=== PATIENT | male | born 1980 | race Caucasian/White ===

== ENCOUNTER 2018-11-05 16:26 | Emergency (ER) | payer BC, OTHER ==
[~2018-11-05] VITALS: Ht 182.9 cm; Wt 117.9 kg
--- OUTSIDE RECORDS SUMMARY | 2018-11-05 16:32 | XMS REPORT | Continuity of Care Document ---
Author Organization Unknown Address Unknown Phone Unavailable Allergies There is no data. Medications There is no data. Problems There is no data. Procedures There is no data. Results There is no data. Encounters ACCT No. Visit Date/Time Discharge Status Pt. Type Provider Facility Loc./Unit Complaint [id number] 09/12/2018 17:15:00 09/12/2018 23:59:59 [facility] Outpatient CADEN BRADY [facility]
--- NOTE | 2018-11-05 18:04 | ED Respiratory ---
General Chief Complaint: Respiratory Problems Stated Complaint: SOB, LT LEG PAIN Nursing Triage Note: Patient states he started having leg pain this morning on posterior left thigh that is worse with walking. About an hour ago started having mild shortness of breath. States he feels like he has been "working hard" for air. Shortness of breath is not changed by activity. States he was in a car for 5 hours yesterday. No hx of blood clots. Had similar symptoms 5 years ago along with arm numbness and tingling and was told he had "age spots" on his brain. History of Present Illness Date Seen by Provider: Nov 05, 2018 Time Seen by Provider: 17:59 Initial Comments above is accurate pt states his only known PMHx is HTN noted burnng pain in left hamstring area this AM no known precipitant then maybe mild sob vague R chest/neck pain few days ago sx's mild and vague pt in no distress Allergies and Home Medications Patient Home Medication List Home Medication List Reviewed: Yes Review of Systems Review of Systems Constitutional: no symptoms reported EENTM: no symptoms reported Respiratory: short of breath Cardiovascular: chest pain (minimal right chest and neck discomfort recently not now); No syncope Gastrointestinal: No abdominal pain Genitourinary: no symptoms reported Musculoskeletal: other (pain left quadriceps) Past Idzhavp-Qpwsmm-Zszqql Hx Patient Social History Alcohol Use: Denies Use Recreational Drug Use: No Smoking Status: Current Everyday Smoker Type Used: Cigarettes 2nd Hand Smoke Exposure: Yes Recent Foreign Travel: No Contact w/Someone Who Travel: No Recent Infectious Disease Expo: No Recent Hopitalizations: No Physical Abuse: No Sexual Abuse: No Mistreated: No Fear: No Seasonal Allergies Seasonal Allergies: No Past Medical History Surgeries: Yes (hernia) Respiratory: No Cardiac: Yes Hypertension Neurological: No Genitourinary: No Gastrointestinal: No Musculoskeletal: Yes Arthritis Endocrine: No HEENT: No Cancer: No Psychosocial: No Integumentary: No Physical Exam Vital Signs - First Documented 11/05/18 16:48 Temp 99.6 Pulse 107 Resp 18 B/P (MAP) 128/80 (96) Pulse Ox 98 Capillary Refill : Less Than 3 Seconds Height: 6'0" Weight: 260lbs. oz. 117.993716vg; BMI Method:Stated General Appearance: no apparent distress Eyes: Bilateral Eye PERRL, Bilateral Eye EOMI HEENT: normal ENT inspection Neck: non-tender, supple Respiratory: chest non-tender, lungs clear, normal breath sounds Cardiovascular: regular rate, rhythm Gastrointestinal: normal bowel sounds Extremities: normal range of motion, non-tender, normal inspection, other (no + findings on exam) Progress/Results/Core Measures Suspected Sepsis Recent Fever Within 48 Hours: No Infection Criteria Present: None New/Unexplained Altered Menta: No Sepsis Screen: No Definite Risk SIRS Temperature:99.6 Pulse: 107 Respiratory Rate: 18 Blood Pressure 128 /80 Mean: 96 Results/Orders Lab Results Laboratory Tests Test 11/05/18 17:41 Range/Units D-Dimer 0.24 0.00-0.49 UG/ML Troponin I < 0.30 <0.30 NG/ML My Orders Orders - HERMILO KING MD Troponin I (11/05/18 17:26) Fibrin Degradation Products (11/05/18 17:26) Vital Signs/I&O 11/05/18 16:48 Temp 99.6 Pulse 107 Resp 18 B/P (MAP) 128/80 (96) Pulse Ox 98 Capillary Refill : Less Than 3 Seconds Blood Pressure Mean: 96 ECG Initial ECG Impression Date: Nov 05, 2018 Initial ECG Impression Time: 18:06 Initial ECG Rate: 95 Initial ECG Intervals: Normal Initial ECG Impression: Normal Departure Impression Primary Impression: Hamstring muscle strain Qualified Codes: S76.312A - Strain of muscle, fascia and tendon of the posterior muscle group at thigh level, left thigh, initial encounter Disposition: 01 HOME, SELF-CARE Condition: Stable Departure-Patient Inst. Decision time for Depature: 18:23 Patient Instructions: Hamstring Muscle Strain (DC) HERMILO KING MD Nov 05, 2018 18:04
[2018-11-05 18:35] VITALS: BP 136/98
== END 2018-11-05 18:32 | disposition home or self-care (01) ==
LOC: ER FS 16:28
DX: S76.312A Strain of muscle, fascia and tendon of the posterior muscle group at thigh level, left thigh, initial encounter (principal); I10 Essential (primary) hypertension; F17.210 Nicotine dependence, cigarettes, uncomplicated; X58.XXXA Exposure to other specified factors, initial encounter
CPT/HCPCS: 36415; 84484; 85379; 93005

== ENCOUNTER 2020-06-19 20:57 | Emergency (ER) | payer SELFPAY ==
[~2020-06-19] VITALS: Ht 182.8 cm; Wt 126.9 kg
--- NOTE | 2020-06-19 22:03 | ED Abdominal Pain ---
General Chief Complaint: Abdominal/GI Problems Stated Complaint: COUGH,RT SIDE ABD PAIN History of Present Illness Date Seen by Provider: Jun 19, 2020 Time Seen by Provider: 21:55 Initial Comments Patient is a 39-year-old male who presents to the emergency department with a chief complaint of right flank pain/right upper quadrant abdominal pain onset 2 days ago. Patient states he is taken 800 mg ibuprofen and a muscle relaxer without any relief of symptoms. He states that it hurts to take a deep breath and to cough. Patient states he has had some upper respiratory congestion over the last couple of days. He states his cough is nonproductive. He just took a daughter to urgent care within the last few days and she was diagnosed with upper respiratory tract infection. He denies any nausea or vomiting. No diarrhea. No problems urinating. The pain does not radiate down into his groin. He denies any rashes. He describes the pain as burning and sharp. All other review of systems reviewed and negative except as stated above. Timing/Duration: 1-2 Days Severity/Quality: Moderate, Burning, Cramping, Sharp Location: RUQ Radiation: RUQ Modifying Factors: Worsens With Coughing, Worsens With Movement Associated Symptoms: Shortness of Air Allergies and Home Medications Allergies Coded Allergies: No Known Drug Allergies (Unverified , 11/05/18) Patient Home Medication List Home Medication List Reviewed: Yes Review of Systems Review of Systems Constitutional: see HPI EENTM: No Symptoms Reported Respiratory: Cough Cardiovascular: No Symptoms Reported Gastrointestinal: Abdominal Pain; Denies Diarrhea, Denies Nausea, Denies Poor Appetite Genitourinary: No Symptoms Reported; Denies Burning, Denies Hematuria Musculoskeletal: back pain Skin: no symptoms reported (Right flank); No pruritus, No rash All Other Systems Reviewed Negative Unless Noted: Yes Past Woepika-Wmzjjo-Oqmyyc Hx Patient Social History Type Used: Cigarettes 2nd Hand Smoke Exposure: Yes Recent Hopitalizations: No Seasonal Allergies Seasonal Allergies: No Past Medical History Surgeries: Yes (hernia) Respiratory: No Cardiac: Yes Hypertension Neurological: No Genitourinary: No Gastrointestinal: No Musculoskeletal: Yes Arthritis Endocrine: No HEENT: No Cancer: No Psychosocial: No Integumentary: No Physical Exam Vital Signs Vital Signs - First Documented 06/19/20 21:27 Temp 37.4 Pulse 108 Resp 20 B/P (MAP) 146/90 (108) Pulse Ox 98 O2 Delivery Room Air Capillary Refill : Height/Weight/BMI Height: 6'0" Weight: 260lbs. oz. 117.774701px; BMI Method:Stated General Appearance: WD/WN, no apparent distress HEENT: PERRL/EOMI Neck: full range of motion Respiratory: lungs clear, normal breath sounds, no respiratory distress, no accessory muscle use Cardiovascular: regular rate, rhythm Gastrointestinal: normal bowel sounds, soft, tenderness (RUQ) Extremities: non-tender, normal inspection, no pedal edema Back: normal inspection Neurologic/Psychiatric: alert, normal mood/affect, oriented x 3 Skin: normal color, warm/dry Progress/Results/Core Measures Results/Orders Lab Results Laboratory Tests Test 06/19/20 21:36 06/19/20 21:42 Range/Units Urine Color YELLOW Urine Clarity CLEAR Urine pH 6.0 5-9 Urine Specific [place] 1.025 H 1.016-1.022 Urine Protein NEGATIVE NEGATIVE Urine Glucose (UA) NEGATIVE NEGATIVE Urine Ketones NEGATIVE NEGATIVE Urine Nitrite NEGATIVE NEGATIVE Urine Bilirubin NEGATIVE NEGATIVE Urine Urobilinogen 0.2 < = 1.0 MG/DL Urine Leukocyte Esterase NEGATIVE NEGATIVE Urine RBC (Auto) TRACE H NEGATIVE Urine RBC 0-2 /HPF Urine WBC NONE /HPF Urine Squamous Epithelial Cells NONE /HPF Urine Crystals NONE /LPF Urine Bacteria NEGATIVE /HPF Urine Casts NONE /LPF Urine Mucus NEGATIVE /LPF Urine Culture Indicated NO White Blood Count 10.2 4.3-11.0 10^3/uL Red Blood Count 4.77 4.35-5.85 10^6/uL Hemoglobin 14.4 13.3-17.7 G/DL Hematocrit 42 40-54 % Mean Corpuscular Volume 87 80-99 FL Mean Corpuscular Hemoglobin 30 25-34 PG Mean Corpuscular Hemoglobin Concent 35 32-36 G/DL Red Cell Distribution Width 12.3 10.0-14.5 % Platelet Count 256 130-400 10^3/uL Mean Platelet Volume 11.1 H 7.4-10.4 FL Immature Granulocyte % (Auto) 0 % Neutrophils (%) (Auto) 73 42-75 % Lymphocytes (%) (Auto) 16 12-44 % Monocytes (%) (Auto) 7 0-12 % Eosinophils (%) (Auto) 4 0-10 % Basophils (%) (Auto) 0 0-10 % Neutrophils # (Auto) 7.5 1.8-7.8 X 10^3 Lymphocytes # (Auto) 1.7 1.0-4.0 X 10^3 Monocytes # (Auto) 0.7 0.0-1.0 X 10^3 Eosinophils # (Auto) 0.4 H 0.0-0.3 10^3/uL Basophils # (Auto) 0.0 0.0-0.1 10^3/uL Immature Granulocyte # (Auto) 0.0 0.0-0.1 10^3/uL Erythrocyte Sedimentation Rate 7 0-15 MM/HR Sodium Level 135 135-145 MMOL/L Potassium Level 4.2 3.6-5.0 MMOL/L Chloride Level 100 98-107 MMOL/L Carbon Dioxide Level 24 21-32 MMOL/L Anion Gap 11 5-14 MMOL/L Blood Urea Nitrogen 17 7-18 MG/DL Creatinine 0.93 0.60-1.30 MG/DL Estimat Glomerular Filtration Rate > 60 BUN/Creatinine Ratio 18 Glucose Level 126 H 70-105 MG/DL Calcium Level 9.7 8.5-10.1 MG/DL Corrected Calcium 9.3 8.5-10.1 MG/DL Total Bilirubin 0.2 0.1-1.0 MG/DL Aspartate Amino Transf (AST/SGOT) 19 5-34 U/L Alanine Aminotransferase (ALT/SGPT) 14 0-55 U/L Alkaline Phosphatase 97 40-136 U/L Total Protein 7.2 6.4-8.2 GM/DL Albumin 4.5 3.2-4.5 GM/DL My Orders Orders - LEYLA GALINDO MD Cbc With Automated Diff (06/19/20 22:03) Comprehensive Metabolic Panel (06/19/20 22:03) Ua Culture If Indicated (06/19/20 22:03) Chest 1 View Ap/Pa Only (06/19/20 22:03) Ketorolac Injection (Toradol Injection) (06/19/20 22:15) Ed Iv/Invasive Line Start (06/19/20 22:31) Ct Abdomen/Pelvis Wo (06/19/20 22:45) Orphenadrine Inj (Ed Only) (Norflex Inje (06/19/20 23:30) Erythrocyte Sedimentation Rate (06/19/20 23:30) Benzonatate Capsule (Tessalon Perles) (06/19/20 23:45) Rx-Hydrocodone/Apap 5-325 Mg (Rx-Vicodin (06/20/20 00:15) Medications Given in ED Vital Signs/I&O 06/19/20 06/20/20 21:27 00:33 Temp 37.4 Pulse 108 94 Resp 20 16 B/P (MAP) 146/90 (108) 119/79 Pulse Ox 98 99 O2 Delivery Room Air Room Air Progress Progress Note : Time: : Progress Note Patient reevaluated, pain medications did not really helped to any degree of significance. Patient CT shows appendix not definitively identified, there is some soft tissue opacity likely inflammatory stranding in the right lower quadrant of the right inguinal ligament of uncertain significance. May be contiguous with a portion of the distal ileum and could represent a diverticulum of the distal ileum. Also the CT shows high index of suspicion for discitis a repeat exam with delayed oral contrast administration will be helpful. The patient has no midline back pain. He states he has more right flank pain at the level of approximately T8-T10. Labs have been reviewed and are completely within normal limits. The patient has no fever, elevated white blood cell count or other concerning findings. Patient will be treated with some pain medications and advised to follow-up and recheck within 24 hours. He is given Norflex 60 mg at this time for further pain. 0019 After Norflex the patient still has some discomfort. Recommended hydrocodone take-home pack. Advised him to follow-up with his primary care physician in the morning. He verbalizes understanding. All questions were sought and answered. Patient is stable for discharge. Diagnostic Imaging Diagonstic Imaging: Xray, CT Plain Films/CT/US/NM/MRI: chest, abdomen Comments [facility]. [place], [place] NAME: DHAVAL PEDRAZA Aleksandr [facility] REC#: [id number] PT STATUS: DEP ER : 1980 PHYSICIAN: LEYLA GALINDO MD ADMIT DATE: 06/19/20/ER FS Signed Date of Exam:06/19/20 CT ABDOMEN/PELVIS WO PROCEDURE: CT abdomen and pelvis without contrast. TECHNIQUE: Multiple contiguous axial images were obtained through the abdomen and pelvis without the use of intravenous contrast. Auto Exposure Controls were utilized during the CT exam to meet ALARA standards for radiation dose reduction. DATE: June 19, 2020. COMPARISON: None. INDICATION: 39-year-old male, right upper quadrant abdominal pain. FINDINGS: There are limitations for evaluation of the abdominal organs, neoplastic processes, abscess, and limited evaluation of the vasculature relating to the lack of intravenous contrast. The visualized portions of the lung bases are clear. The heart is not enlarged. There is no pericardial effusion. The liver is unremarkable in size and contour. The gallbladder is contracted. There is no biliary ductal dilation. The main pancreatic duct is not abnormally dilated. Limited noncontrast evaluation of the pancreatic parenchyma is unremarkable. The spleen is not enlarged. There is a small accessory splenule. The adrenal glands are unremarkable. Unremarkable appearance of the renal parenchyma on limited noncontrast assessment. The urinary collecting systems are not distended. There is no identified renal or ureteral stone. The urinary bladder is unremarkable. The intestinal tract is not distended. There is no evidence of acute appendicitis. There is no free intraperitoneal air. There is no drainable fluid collection. There is no free pelvic fluid. There are mild atherosclerotic calcifications. There is no identified abnormally enlarged lymph node in the abdomen or pelvis meeting CT size criteria for adenopathy. There are bilateral L5 pars interarticularis defects. IMPRESSION: CT ABDOMEN AND PELVIS. 1. No identified acute abnormality in the abdomen or pelvis. 2. Mild atherosclerotic calcifications are noted. 3. Bilateral L5 pars interarticularis defects. Dictated by: Dictated on workstation # [id number] Dict: 06/20/20 0812 Trans: 06/20/20 09 [facility] [id number] Interpreted by: LOREN MONTES MD Electronically signed by: LOREN MONTES MD 06/20/2004 [facility], [place] NAME: DHAVAL PEDRAZA Aleksandr [facility] REC#: [id number] PT STATUS: DEP ER : 1980 PHYSICIAN: LEYLA GALINDO MD ADMIT DATE: 06/19/20/ER FS Signed Date of Exam:06/19/20 CHEST 1 VIEW AP/PA ONLY EXAMINATION: Chest radiograph, portable AP view. DATE: 06/19/2020 10:23 PM INDICATION: 39-year-old male, cough. COMPARISON: None. FINDINGS: Heart size and mediastinal contours are unremarkable. There is no identified pneumothorax. There is no large pleural effusion. There is no identified focal airspace consolidation. IMPRESSION: No identified acute cardiopulmonary abnormality. Dictated by: Dictated on workstation # [id number] Dict: 06/20/20699 Trans: 06/20/20903 [facility] [id number] Interpreted by: LOREN MONTES MD Electronically signed by: LOREN MONTES MD 06/20/20903 Departure Impression Primary Impression: Right upper quadrant abdominal pain Disposition: HOME, SELF-CARE Condition: Stable Departure-Patient Inst. Decision time for Depature: 00:15 Referrals: CADEN BRADY MD (PCP/Family) Primary Care Physician Patient Instructions: Abdominal Pain, Adult ED Add. Discharge Instructions: Take the pain medications 1 every 6 hours as needed for pain. Please call Dr. Brady's office tomorrow for a follow-up appointment early next week. Come back to the emergency department for worsening pain especially back pain, vomiting, fever or any other emergent concerning symptoms. Copy Copies To 1: CADEN BRADY MD, KATHRYN M MD Jun 19, 2020 22:02
[2020-06-19 22:12] LABS: HEMATOCRIT 42 % (40-54); HEMOGLOBIN 14.4 G/DL (13.3-17.7); MEAN CORPUSCULAR HEMOGLOBIN 30 PG (25-34); MEAN CORPUSCULAR HGB CONC 35 G/DL (32-36); MEAN CORPUSCULAR VOLUME 87 FL (80-99); MEAN PLATELET VOLUME 11.1 FL (7.4-10.4); PLATELET COUNT 256 10^3/uL (130-400); WHITE BLOOD COUNT 10.2 10^3/uL (4.3-11.0)
[2020-06-19 22:13] LABS: BASOPHILS % (AUTO) 0 % (0-10); EOSINOPHILS # (AUTO) 0.4 10^3/uL (0.0-0.3); EOSINOPHILS % (AUTO) 4 % (0-10); LYMPHOCYTES # (AUTO) 1.7 X 10^3 (1.0-4.0); LYMPHOCYTES % (AUTO) 16 % (12-44); MONOCYTES # (AUTO) 0.7 X 10^3 (0.0-1.0); MONOCYTES % (AUTO) 7 % (0-12); NEUTROPHILS # (AUTO) 7.5 X 10^3 (1.8-7.8); NEUTROPHILS % (AUTO) 73 % (42-75)
[2020-06-19] MEDS ORDERED: KETOROLAC 30 MG/ML VIAL IVP ONE (22:15)
[2020-06-19 22:28] LABS: ALANINE AMINOTRANSFERASE 14 U/L (0-55); ALKALINE PHOSPHATASE 97 U/L (40-136); BILIRUBIN,TOTAL 0.2 MG/DL (0.1-1.0); BUN/CREATININE RATIO 18; CALCIUM 9.7 MG/DL (8.5-10.1); CARBON DIOXIDE 24 MMOL/L (21-32); CHLORIDE 100 MMOL/L (98-107); CREATININE SERUM 0.93 MG/DL (0.60-1.30); GFR ESTIMATED > 60; GLUCOSE 126 MG/DL (70-105); POTASSIUM 4.2 MMOL/L (3.6-5.0); SODIUM 135 MMOL/L (135-145); TOTAL PROTEIN 7.2 GM/DL (6.4-8.2)
[2020-06-19 22:29] LABS: ALBUMIN 4.5 GM/DL (3.2-4.5)
[2020-06-19 22:38] LABS: CLARITY,URINE CLEAR; COLOR,URINE YELLOW; GLUCOSE, URINE (UA) NEGATIVE (NEGATIVE); PROTEIN,URINE NEGATIVE (NEGATIVE)
[2020-06-19 22:39] LABS: BACTERIA,URINE NEGATIVE /HPF; BILIRUBIN,URINE NEGATIVE (NEGATIVE); KETONES,URINE NEGATIVE (NEGATIVE); LEUKOCYTE ESTERASE ,URINE NEGATIVE (NEGATIVE); NITRITE,URINE NEGATIVE (NEGATIVE); RBC,URINE 0-2 /HPF
[2020-06-19] MEDS ORDERED: ORPHENADRINE 60 MG/2 ML (NORFLEX) AMP (ED ONLY) IV ONE (23:30)
[2020-06-19] MEDS ORDERED: BENZONATATE 100 MG (TESSALON) CAPSULE PO SCH (23:45)
[2020-06-20] MEDS ORDERED: RX-HYDROCODONE/APAP 5/325 MG #4 TAB PK PO PRN (00:15)
[2020-06-20 00:33] VITALS: BP 119/79
--- NOTE | 2020-06-20 07:15 | Diagnostic Imaging Report ---
EXAMINATION: Chest radiograph, portable AP view. DATE: 06/19/2020 10:23 PM INDICATION: 39-year-old male, cough. COMPARISON: None. FINDINGS: Heart size and mediastinal contours are unremarkable. There is no identified pneumothorax. There is no large pleural effusion. There is no identified focal airspace consolidation. IMPRESSION: No identified acute cardiopulmonary abnormality. Dictated by: Dictated on workstation # [id number]
--- NOTE | 2020-06-20 08:20 | Diagnostic Imaging Report ---
PROCEDURE: CT abdomen and pelvis without contrast. TECHNIQUE: Multiple contiguous axial images were obtained through the abdomen and pelvis without the use of intravenous contrast. Auto Exposure Controls were utilized during the CT exam to meet ALARA standards for radiation dose reduction. DATE: June 19, 2020. COMPARISON: None. INDICATION: 39-year-old male, right upper quadrant abdominal pain. FINDINGS: There are limitations for evaluation of the abdominal organs, neoplastic processes, abscess, and limited evaluation of the vasculature relating to the lack of intravenous contrast. The visualized portions of the lung bases are clear. The heart is not enlarged. There is no pericardial effusion. The liver is unremarkable in size and contour. The gallbladder is contracted. There is no biliary ductal dilation. The main pancreatic duct is not abnormally dilated. Limited noncontrast evaluation of the pancreatic parenchyma is unremarkable. The spleen is not enlarged. There is a small accessory splenule. The adrenal glands are unremarkable. Unremarkable appearance of the renal parenchyma on limited noncontrast assessment. The urinary collecting systems are not distended. There is no identified renal or ureteral stone. The urinary bladder is unremarkable. The intestinal tract is not distended. There is no evidence of acute appendicitis. There is no free intraperitoneal air. There is no drainable fluid collection. There is no free pelvic fluid. There are mild atherosclerotic calcifications. There is no identified abnormally enlarged lymph node in the abdomen or pelvis meeting CT size criteria for adenopathy. There are bilateral L5 pars interarticularis defects. IMPRESSION: CT ABDOMEN AND PELVIS. 1. No identified acute abnormality in the abdomen or pelvis. 2. Mild atherosclerotic calcifications are noted. 3. Bilateral L5 pars interarticularis defects. Dictated by: Dictated on workstation # [id number]
== END 2020-06-20 00:33 | disposition home or self-care (01) ==
LOC: EDUNIT# 20:57 → ER FS 20:59
DX: R10.11 Right upper quadrant pain (principal); I10 Essential (primary) hypertension; Z77.22 Contact with and (suspected) exposure to environmental tobacco smoke (acute) (chronic)
CPT/HCPCS: 36415; 71045; 74176; 80053; 81000; 85025; 85652

== ENCOUNTER → 2020-07-01 | Outpatient (CLI) | payer SELFPAY ==
--- NOTE | 2020-07-01 16:44 | Diagnostic Imaging Report ---
Indication: Shortness of breath. Time of Exam 3:23 PM Correlation is made with prior chest 06/19/2020. The heart size is normal. The pulmonary vascularity is unremarkable. The lungs are clear. No infiltrate, effusion or pneumothorax is detected. Impression: No acute cardiopulmonary process is detected. Dictated by: Dictated on workstation # [id number]
== END ==
LOC: RAD FS 15:12
PROVIDERS: ATTEND Nurse Practitioner Family
DX: R06.02 Shortness of breath (principal)
CPT/HCPCS: 71046

== ENCOUNTER 2020-07-02 03:25 | Emergency (ER) | payer SELFPAY ==
[~2020-07-02] VITALS: Ht 182.9 cm; Wt 120.6 kg
--- NOTE | 2020-07-02 03:44 | ED Chest Pain ---
General Chief Complaint: Chest Wall Stated Complaint: ABD PAIN Source: patient Exam Limitations: no limitations History of Present Illness Date Seen by Provider: Jul 02, 2020 Time Seen by Provider: 03:39 Initial Comments 39-year-old male presents with right flank/back pain that radiates into the right upper abdomen and right chest. Patient reports is been going on and off for "a month" patient was seen here on June 19, 2020 had an extensive evaluation including labs and CT that were negative. Patient had an outpatient chest x-ray that was called in for him yesterday that shows no acute changes. Patient reports that the pain is worse tonight and that he cannot stand it. Patient has tried Tylenol and ibuprofen with no relief. Patient reports he tried Biofreeze with no relief. Patient does not have any rash. Allergies and Home Medications Allergies Coded Allergies: No Known Drug Allergies (Unverified , 11/05/18) Patient Home Medication List Home Medication List Reviewed: Yes Review of Systems Review of Systems Constitutional: No chills, No fever Cardiovascular: See HPI Gastrointestinal: See HPI Genitourinary: Flank Pain Musculoskeletal: see HPI Skin: no symptoms reported Psychiatric/Neurological: No Symptoms Reported Endocrine: No Symptoms Reported Hematologic/Lymphatic: No Symptoms Reported Past [place]-Nbcdap-Bcwsiy Hx Past Med/Social Hx: Reviewed Nursing Past Med/Soc Hx Patient Social History Type Used: Cigarettes 2nd Hand Smoke Exposure: Yes Recent Hopitalizations: No Seasonal Allergies Seasonal Allergies: No Past Medical History Surgeries: Yes (hernia) Respiratory: No Cardiac: Yes Hypertension Neurological: No Genitourinary: No Gastrointestinal: No Musculoskeletal: Yes Arthritis Endocrine: No HEENT: No Cancer: No Psychosocial: No Integumentary: No Physical Exam Vital Signs Vital Signs - First Documented 07/02/20 03:37 Temp 36.8 Pulse 94 Resp 18 B/P (MAP) 161/114 (130) Pulse Ox 97 O2 Delivery Room Air Capillary Refill : Less Than 3 Seconds Height, Weight, BMI Height: 6'0" Weight: 260lbs. oz. 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 Norm as Tested Skin: Normal Color, Warm/Dry; No Rash Progress/Results/Core Measures Results/Orders Lab Results Laboratory Tests Test 07/02/20 03:50 07/02/20 03:55 Range/Units Urine Color YELLOW Urine Clarity CLEAR Urine pH 6.5 5-9 Urine Specific Shields 1.025 H 1.016-1.022 Urine Protein NEGATIVE NEGATIVE Urine Glucose (UA) NEGATIVE NEGATIVE Urine Ketones TRACE H NEGATIVE Urine Nitrite NEGATIVE NEGATIVE Urine Bilirubin NEGATIVE NEGATIVE Urine Urobilinogen 0.2 < = 1.0 MG/DL Urine Leukocyte Esterase NEGATIVE NEGATIVE Urine RBC (Auto) TRACE H NEGATIVE Urine RBC RARE /HPF Urine WBC NONE /HPF Urine Squamous Epithelial Cells NONE /HPF Urine Crystals NONE /LPF Urine Bacteria NEGATIVE /HPF Urine Casts NONE /LPF Urine Mucus NEGATIVE /LPF Urine Culture Indicated NO White Blood Count 7.9 4.3-11.0 10^3/uL Red Blood Count 4.85 4.35-5.85 10^6/uL Hemoglobin 14.6 13.3-17.7 G/DL Hematocrit 43 40-54 % Mean Corpuscular Volume 89 80-99 FL Mean Corpuscular Hemoglobin 30 25-34 PG Mean Corpuscular Hemoglobin Concent 34 32-36 G/DL Red Cell Distribution Width 12.8 10.0-14.5 % Platelet Count 264 130-400 10^3/uL Mean Platelet Volume 10.6 H 7.4-10.4 FL Immature Granulocyte % (Auto) 0 % Neutrophils (%) (Auto) 69 42-75 % Lymphocytes (%) (Auto) 18 12-44 % Monocytes (%) (Auto) 8 0-12 % Eosinophils (%) (Auto) 4 0-10 % Basophils (%) (Auto) 0 0-10 % Neutrophils # (Auto) 5.5 1.8-7.8 X 10^3 Lymphocytes # (Auto) 1.4 1.0-4.0 X 10^3 Monocytes # (Auto) 0.6 0.0-1.0 X 10^3 Eosinophils # (Auto) 0.3 0.0-0.3 10^3/uL Basophils # (Auto) 0.0 0.0-0.1 10^3/uL Immature Granulocyte # (Auto) 0.0 0.0-0.1 10^3/uL Sodium Level 140 135-145 MMOL/L Potassium Level 4.3 3.6-5.0 MMOL/L Chloride Level 103 98-107 MMOL/L Carbon Dioxide Level 27 21-32 MMOL/L Anion Gap 10 5-14 MMOL/L Blood Urea Nitrogen 11 7-18 MG/DL Creatinine 0.93 0.60-1.30 MG/DL Estimat Glomerular Filtration Rate > 60 BUN/Creatinine Ratio 12 Glucose Level 170 H 70-105 MG/DL Calcium Level 9.9 8.5-10.1 MG/DL Corrected Calcium 8.5-10.1 MG/DL Total Bilirubin 0.3 0.1-1.0 MG/DL Aspartate Amino Transf (AST/SGOT) 16 5-34 U/L Alanine Aminotransferase (ALT/SGPT) 13 0-55 U/L Alkaline Phosphatase 93 40-136 U/L C-Reactive Protein 0.86 H <0.50 MG/DL Total Protein 7.3 6.4-8.2 GM/DL Albumin 4.6 H 3.2-4.5 GM/DL Lipase 29 8-78 U/L My Orders Orders - ROSE,BENNETT L DO Cbc With Automated Diff (07/02/20 03:47) Comprehensive Metabolic Panel (07/02/20 03:47) Lipase (07/02/20 03:47) Ua Culture If Indicated (07/02/20 03:47) Crp Fs (07/02/20 03:47) Hydrocodone/Apap 5/325 Tablet (Lortab 5 (07/02/20 04:00) Orphenadrine Inj (Ed Only) (Norflex Inje (07/02/20 04:15) Medications Given in ED Current Medications Medications Dose Ordered Sig/Oleksandr Route Start Time Stop Time Status Last Admin Dose Admin Acetaminophen/ Hydrocodone Bitart 1 ea ONCE ONCE PO 07/02/20 04:00 07/02/20 04:01 DC 07/02/20 04:11 1 EA Orphenadrine Citrate 60 mg ONCE ONCE IM 07/02/20 04:15 07/02/20 04:16 DC 07/02/20 04:11 60 MG Vital Signs/I&O 07/02/20 07/02/20 03:37 05:08 Temp 36.8 36.8 Pulse 94 94 Resp 18 18 B/P (MAP) 161/114 (130) 161/114 (130) Pulse Ox 97 97 O2 Delivery Room Air Progress Progress Note : Progress Note Patient symptoms are exactly the same as when he was seen here on 06/19/2020. There are no acute abnormalities on his labs. Patient with a negative CT exam on 06/19/2020 and a negative chest x-ray yesterday. At this time, there is no indications for repeat CT scan. I recommend he follow-up with his primary care provider today for further outpatient pain management and further outpatient evaluation. Patient's pain improved following the Norflex and the Lortab. He was discharged in stable condition Departure Impression Primary Impression: Right flank pain Disposition: HOME, SELF-CARE Condition: Stable Departure-Patient Inst. Referrals: ATILIO BROUSSARD DO (PCP/Family) Primary Care Physician Patient Instructions: Costochondritis (DC), Flank Pain (DC) Add. Discharge Instructions: follow up with your primary care provider for further evaluation warm moist heat to affected area 4% topical lidocaine with menthol patches. All discharge instructions reviewed with patient and/or family. Voiced understanding. BENNETT ROSE DO Jul 02, 2020 03:44
[2020-07-02] MEDS ORDERED: ORPHENADRINE 60 MG/2 ML (NORFLEX) AMP (ED ONLY) IV STA (03:57)
[2020-07-02] MEDS ORDERED: HYDROcodone/APAP 5 MG/325 MG (LORTAB) TAB PO ONE (04:00)
[2020-07-02 04:15] LABS: HEMATOCRIT 43 % (40-54); HEMOGLOBIN 14.6 G/DL (13.3-17.7); MEAN CORPUSCULAR HEMOGLOBIN 30 PG (25-34); MEAN CORPUSCULAR HGB CONC 34 G/DL (32-36); MEAN CORPUSCULAR VOLUME 89 FL (80-99); WHITE BLOOD COUNT 7.9 10^3/uL (4.3-11.0)
[2020-07-02] MEDS ORDERED: ORPHENADRINE 60 MG/2 ML (NORFLEX) AMP (ED ONLY) IM ONE (04:15)
[2020-07-02 04:18] LABS: BASOPHILS % (AUTO) 0 % (0-10); EOSINOPHILS % (AUTO) 4 % (0-10); LYMPHOCYTES % (AUTO) 18 % (12-44); MEAN PLATELET VOLUME 10.6 FL (7.4-10.4); MONOCYTES % (AUTO) 8 % (0-12); NEUTROPHILS % (AUTO) 69 % (42-75); PLATELET COUNT 264 10^3/uL (130-400)
[2020-07-02 04:19] LABS: EOSINOPHILS # (AUTO) 0.3 10^3/uL (0.0-0.3); LYMPHOCYTES # (AUTO) 1.4 X 10^3 (1.0-4.0); MONOCYTES # (AUTO) 0.6 X 10^3 (0.0-1.0); NEUTROPHILS # (AUTO) 5.5 X 10^3 (1.8-7.8)
[2020-07-02 04:23] LABS: BACTERIA,URINE NEGATIVE /HPF; BILIRUBIN,URINE NEGATIVE (NEGATIVE); CLARITY,URINE CLEAR; COLOR,URINE YELLOW; GLUCOSE, URINE (UA) NEGATIVE (NEGATIVE); KETONES,URINE TRACE (NEGATIVE); LEUKOCYTE ESTERASE ,URINE NEGATIVE (NEGATIVE); NITRITE,URINE NEGATIVE (NEGATIVE); PH,URINE 6.5 (5-9); PROTEIN,URINE NEGATIVE (NEGATIVE); RBC,URINE RARE /HPF
[2020-07-02 04:36] LABS: ALANINE AMINOTRANSFERASE 13 U/L (0-55); ALKALINE PHOSPHATASE 93 U/L (40-136); BILIRUBIN,TOTAL 0.3 MG/DL (0.1-1.0); BUN/CREATININE RATIO 12; CALCIUM 9.9 MG/DL (8.5-10.1); CARBON DIOXIDE 27 MMOL/L (21-32); CHLORIDE 103 MMOL/L (98-107); CREATININE SERUM 0.93 MG/DL (0.60-1.30); GFR ESTIMATED > 60; GLUCOSE 170 MG/DL (70-105); POTASSIUM 4.3 MMOL/L (3.6-5.0); SODIUM 140 MMOL/L (135-145); TOTAL PROTEIN 7.3 GM/DL (6.4-8.2)
[2020-07-02 04:37] LABS: ALBUMIN 4.6 GM/DL (3.2-4.5); LIPASE 29 U/L (8-78)
[2020-07-02 05:08] VITALS: BP 161/114
== END 2020-07-02 05:08 | disposition home or self-care (01) ==
LOC: EDUNIT# 03:25 → ER FS 03:27
DX: R10.11 Right upper quadrant pain (principal); I10 Essential (primary) hypertension; Z77.22 Contact with and (suspected) exposure to environmental tobacco smoke (acute) (chronic)
CPT/HCPCS: 36415; 80053; 81000; 83690; 85025; 86141

== ENCOUNTER 2021-11-16 19:09 | Emergency (ER) | payer SELFPAY ==
[~2021-11-16] VITALS: Ht 182.8 cm; Wt 107.0 kg
--- NOTE | 2021-11-16 19:19 | ED General ---
General Stated Complaint: FEVER,CHILLS,ABD CRAMPS Source of Information: Patient Exam Limitations: No Limitations History of Present Illness Date Seen by Provider: Nov 16, 2021 Time Seen by Provider: 19:10 Initial Comments 40-year-old male with past medical history of hypertension coming in due to 4 days of fever, chills, body aches, nonbloody diarrhea, and now starting to feel short of breath. No one around him sick that he knows of. Has been tolerating p.o. with no nausea or vomiting. Denies any chest pain, severe abdominal pain, rash, headache, vision changes, neck stiffness, or any other concerns. Had COVID 8 months ago, but does not have any vaccines for COVID. Allergies and Home Medications Allergies Coded Allergies: No Known Drug Allergies (Unverified , 11/05/18) Patient Home Medication List Home Medication List Reviewed: Yes No Active Prescriptions or Reported Meds Review of Systems Review of Systems Constitutional: fever EENTM: No blurred vision Respiratory: No cough Cardiovascular: No chest pain Gastrointestinal: diarrhea Genitourinary: no symptoms reported Musculoskeletal: see HPI Skin: no symptoms reported Psychiatric/Neurological: No Symptoms Reported Hematologic/Lymphatic: No Symptoms Reported Immunological/Allergic: no symptoms reported All Other Systems Reviewed Negative Unless Noted: Yes Past Bnaoghk-Imwqpa-Bgwedd Hx Patient Social History Tobacco Use?: Yes Tobacco type used: Cigarettes Seasonal Allergies Seasonal Allergies: No Past Medical History Surgeries: Yes (hernia) Respiratory: No Cardiac: Yes Hypertension Neurological: No Genitourinary: No Gastrointestinal: No Musculoskeletal: Yes Arthritis Endocrine: No HEENT: No Cancer: No Psychosocial: No Integumentary: No Blood Disorders: No Physical Exam Vital Signs Vital Signs - First Documented 11/16/21 19:16 Temp 38.8 Pulse 103 Resp 20 B/P (MAP) 138/79 (98) Pulse Ox 99 O2 Delivery Room Air Capillary Refill : Height, Weight, BMI Height: 6'0" Weight: 260lbs. oz. 117.757552qd; 36.00 BMI Method:Stated General Appearance: No Apparent Distress, WD/WN HEENT: PERRL/EOMI, Normal ENT Inspection, Pharynx Normal Neck: Full Range of Motion, Normal Inspection, Non Tender, Supple Respiratory: Chest Non Tender, Lungs Clear, Normal Breath Sounds, No Accessory Muscle Use, No Respiratory Distress Cardiovascular: Regular Rate, Rhythm, No Edema, Normal Peripheral Pulses Gastrointestinal: Normal Bowel Sounds, Non Tender, Soft Back: Normal Inspection Extremity: Normal Capillary Refill, Normal Inspection, Normal Range of Motion, Non Tender, No Calf Tenderness Neurologic/Psychiatric: Alert, No Motor/Sensory Deficits, Normal Mood/Affect Skin: Normal Color, Warm/Dry Lymphatic: No Adenopathy Progress/Results/Core Measures Suspected Sepsis SIRS Temperature: Pulse: Respiratory Rate: Blood Pressure / Mean: Results/Orders Lab Results Laboratory Tests Test 11/16/21 19:21 Range/Units Influenza Type A (RT-PCR) Not Detected Not Detecte Influenza Type B (RT-PCR) Not Detected Not Detecte SARS-CoV-2 RNA (RT-PCR) Not Detected Not Detecte My Orders Orders - EVELYNE REESE MD Influenza A And B By Pcr (11/16/21 19:16) Covid 19 Inhouse Test (11/16/21 19:16) Chest 1 View Ap/Pa Only (11/16/21 19:16) Vital Signs/I&O 11/16/21 19:16 Temp 38.8 Pulse 103 Resp 20 B/P (MAP) 138/79 (98) Pulse Ox 99 O2 Delivery Room Air Capillary Refill : Progress Note : Progress Note 40-year-old male with above history coming in due to flulike symptoms. The patient was febrile on presentation but nontoxic. He had just received ibuprofen and Tylenol prior to arrival. Otherwise ABCs were intact. Physical exam reassuring with no acute abnormalities. Flu and COVID testing sent and were both negative. Chest x-ray clear without any acute abnormalities. He does have a significant smoking history and has had more of a productive cough he said later on during the visit. Possible he is developing some structural lung disease as well. We will treat him with a course of doxycycline likely will with the potential COPD exacerbation. I believe he stable for discharge with outpatient follow-up. He was sent home with strict return precautions. Departure Impression Primary Impression: Upper respiratory infection Qualified Codes: J00 - Acute nasopharyngitis [common cold] Additional Impression: Flu-like symptoms Disposition: HOME, SELF-CARE Condition: Stable Departure-Patient Inst. Decision time for Depature: 20:01 Referrals: ATILIO BROUSSARD DO (PCP/Family) Primary Care Physician Patient Instructions: Viral Syndrome (DC) Add. Discharge Instructions: Your chest x-ray was clear and your flu and COVID test were negative. You likely do have something viral. Given your productive cough and your smoking history we will treat it with an antibiotic since there can be more of a chance of something bacterial brewing. You likely take 7 to 10 days to start improving. Follow-up with your regular doctor if things are not getting better. Scripts Doxycycline Hyclate (Doxycycline Hyclate) 100 Mg Tablet 100 MG PO BID for 5 Days, #10 TAB 0 Refills Prov: EVELYNE REESE MD 11/16/21 Work/School Note: Work Release Form Date Seen in the Emergency Department: Nov 16, 2021 Return to Work: Nov 18, 2021 Restrictions: Return-No Fever (24hrs) EVELYNE REESE MD Nov 16, 2021 19:19
--- NOTE | 2021-11-16 19:35 | Diagnostic Imaging Report ---
EXAMINATION: Chest 1 view HISTORY: Shortness of breath COMPARISON: 06/19/2020 FINDINGS: The lungs are clear without edema or pneumonia. No pleural effusion or pneumothorax. Heart size is normal. IMPRESSION: 1. Clear lungs. Dictated by: Dictated on workstation # [id number]
[2021-11-16] MEDS ORDERED: DOXY100T2 PO (20:03)
[2021-11-16 20:05] VITALS: BP 101/66
== END 2021-11-16 20:05 | disposition home or self-care (01) ==
LOC: EDUNIT# 19:09 → ER FS 19:10
DX: J06.9 Acute upper respiratory infection, unspecified (principal); Z87.891 Personal history of nicotine dependence; Z86.16 Personal history of COVID-19; Z28.310 Unvaccinated for COVID-19; Z20.822 Contact with and (suspected) exposure to COVID-19
CPT/HCPCS: 71045; 87636

== ENCOUNTER 2022-11-07 12:32 | Emergency (ER) | payer SELFPAY ==
[~2022-11-07] VITALS: Ht 182 cm; Wt 112.0 kg
[~2022-11-07 12:32] MED LIST: DOXY100T2 PO
--- NOTE | 2022-11-07 13:04 | ED Upper Extremity ---
General Chief Complaint: Upper Extremity Stated Complaint: LT ARM INJ Nursing Triage Note: Patient has ambulated to ER 2 with cc of left forearm pain. He reports that on Tuesday he had smashed his upper forearm between some metal. He states that is has continued to hurt and came to ER for evaluation. Source: patient History of Present Illness Date Seen by Provider: Nov 07, 2022 Time Seen by Provider: 12:34 Initial Comments 41-year-old male presenting with complaints of pain to the left forearm. He states that on Tuesday his arm got smashed between 2 metal plates. He states he has continued to have pain so he decided to come be seen today. He has tried Tylenol and ibuprofen without any improvement. He has increased pain with trying to supinate on the left side. He has no pain at the elbow or above. He is neurologically intact. Location Injury Occurred: Home Onset: other (Tuesday, November 05) Severity: moderate Pain/Injury Location: left forearm Method of Injury: direct blow Modifying Factors: Worse With Movement Allergies and Home Medications Allergies Coded Allergies: No Known Drug Allergies (Unverified , 11/05/18) Patient Home Medication List Home Medication List Reviewed: Yes Doxycycline Hyclate (Doxycycline Hyclate) 100 Mg Tablet, 100 MG PO BID Prescribed by: EVELYNE REESE on 11/16/212002 Ibuprofen (Ibuprofen) 800 Mg Tablet, 800 MG PO Q8H PRN for PAIN Prescribed by: JOSE GONZALEZ on 11/07/22 1307 Review of Systems Constitutional: No chills, No fever EENTM: no symptoms reported Respiratory: no symptoms reported Cardiovascular: no symptoms reported Gastrointestinal: no symptoms reported Genitourinary: no symptoms reported Musculoskeletal: see HPI Skin: No change in color Psychiatric/Neurological: Denies Numbness, Denies Paresthesia Past Tihiuly-Gawilf-Mixpem Hx Patient Social History Tobacco Use?: Yes Tobacco type used: Cigarettes Use of E-Cig and/or Vaping dev: No Substance use?: No Alcohol Use?: No Immunizations Up To Date First/Initial COVID19 Vaccinat: unvaccinated Seasonal Allergies Seasonal Allergies: No Past Medical History Surgery/Hospitalization HX: HTN, Hernia Repair Surgeries: Yes (hernia) Respiratory: No Cardiac: Yes Hypertension Neurological: No Genitourinary: No Gastrointestinal: No Musculoskeletal: Yes Arthritis Endocrine: No HEENT: No Cancer: No Psychosocial: No Integumentary: No Blood Disorders: No Physical Exam Vital Signs Vital Signs - First Documented 11/07/22 12:40 Temp 36.3 Pulse 87 Resp 16 B/P (MAP) 162/93 (116) Pulse Ox 100 O2 Delivery Room Air Capillary Refill : Height, Weight, BMI Height: 6'0" Weight: 260lbs. oz. 117.227054iu; 33.00 BMI Method:Stated General Appearance: WD/WN, no apparent distress Cardiovascular: normal peripheral pulses Elbow/Forearm: Left, pain, soft tissue tenderness Neurologic/Tendon: normal sensation, normal motor functions, normal tendon functions Neurologic/Psychiatric: neurology teacher II-XII nml as tested, no motor/sensory deficits, alert, normal mood/affect, oriented x 3 Skin: normal color, warm/dry Progress/Results/Core Measures Results/Orders My Orders Orders - JOSE GONZALEZ MD Forearm 2 View Left (11/07/22 12:42) Ice: Apply To Affected Area (11/07/22 12:42) Elevate Affected Extremity (11/07/22 12:42) Ed Ortho/Other Supplies Order (11/07/22 13:09) Orthopedic Equiment (11/07/22 13:09) Vital Signs/I&O 11/07/22 11/07/22 12:40 13:13 Temp 36.3 36.3 Pulse 87 87 Resp 16 16 B/P (MAP) 162/93 (116) 162/93 Pulse Ox 100 100 O2 Delivery Room Air Room Air Blood Pressure Mean: 116 Progress Progress Note #1: Progress Note Potential diagnosis of radius fracture, ulnar fracture, contusion. He is neurovascularly and tendon intact to the left upper extremity. Obtain x- rays of the left forearm to look for acute bony abnormality. Ice and elevation to help with pain. Progress Note #2: Time: 13:04 Progress Note On my personal review and interpretation of the 2 views of the left forearm I did not appreciate any acute fracture or bony abnormality. He does not have findings for compartment syndrome either. Will treat with anti-inflammatories and sling for resting his arm for the next 2 to 3 days. Encouraged to check back with [facility] clinic or orthopedics if not having improvement in his symptoms. Diagnostic Imaging Diagonstic Imaging: Xray Plain Films/CT/US/NM/MRI: forearm Comments NAME: DHAVAL PEDRAZA [facility] REC#: [id number] PT STATUS: REG ER : 1980 PHYSICIAN: JOSE GONZALEZ MD ADMIT DATE: 11/07/22/ER FS Draft Date of Exam:11/07/22 FOREARM 2 VIEW LEFT INDICATION: pain after caught between metal plates Sunday 11/05 TECHNIQUE: 2 views of the left forearm. CORRELATION STUDY: None FINDINGS: The radius and ulna have an unremarkable appearance. The visualized portions of the elbow and wrist are unremarkable. Soft tissues are unremarkable. IMPRESSION: 1. Negative for acute bony abnormality of the forearm. Dictated on workstation # [id number] Dict: 11/07/22 1303 Trans: 11/07/22 1303 DO [id number] Interpreted by: SAV ELIZONDO DO Electronically signed by: Reviewed: Reviewed by Me (I reviewed the radiologist report at 1307) Departure Impression Primary Impression: Crushing injury of left forearm, initial encounter Additional Impressions: Pain of left forearm Contusion of left forearm, initial encounter Disposition: 01 HOME, SELF-CARE Condition: Stable Departure-Patient Inst. Decision time for Depature: 13:06 Referrals: PHONG DEUTSCH ,LOCAL PHYSICIAN (PCP) Primary Care Physician ARASH BAIN MD [facility] Patient Instructions: Minor Contusion ED, Crush Injury (DC) Add. Discharge Instructions: Take the anti-inflammatory pain medicine to try and help with your symptoms. Use the sling for the next 2 to 3 days to try and limit your arm rest and heal. If having continued symptoms or worsening problems check back with orthopedics and/or [facility]. All discharge instructions reviewed with patient and/or family. Voiced understanding. Scripts Ibuprofen (Ibuprofen) 800 Mg Tablet 800 MG PO Q8H PRN for PAIN for 10 Days, #30 TAB 0 Refills Prov: JOSE GONZALEZ MD 11/07/22 JOSE GONZALEZ MD Nov 07, 2022 13:04
[2022-11-07] MEDS ORDERED: IBUP-1780 PO (13:07)
[2022-11-07 13:13] VITALS: BP 162/93
== END 2022-11-07 13:19 | disposition home or self-care (01) ==
LOC: EDUNIT# 12:32 → ER FS 12:33
DX: S57.82XA Crushing injury of left forearm, initial encounter (principal); F17.210 Nicotine dependence, cigarettes, uncomplicated; Z28.310 Unvaccinated for COVID-19; W23.0XXA Caught, crushed, jammed, or pinched between moving objects, initial encounter